=== PATIENT | female | born 1955 | race Caucasian/White ===

== ENCOUNTER 2020-09-26 15:59 | Emergency (ER) | payer MEDICARE, SELFPAY ==
[2020-09-26 16:13] VITALS: BP 148/98; PULSE 102; RESP 18; TEMP 35.9; O2SAT 99
[2020-09-26 16:54] LABS: Add Urine Microscopic? YES; Appearance Urine Cloudy (Clear); Bacteria Urine Trace /hpf; Bilirubin Urine Negative (Negative); Blood Urine Negative (Negative); Color Urine Yellow (Yellow); Glucose Urine UA Negative (Negative); Ketones Urine Negative (Negative); Leukocyte Esterase Ur 2+ LEU/UL (Negative); Mucus Urine Rare /lpf; Nitrate Urine Negative (Negative); Protein Urine Negative (Negative); Specific Grav Ur 1.014 (1.001-1.035); Squamous Epithelial Cell Urine Occasional /hpf (Few); Urobilinogen Urine Negative mg/dL (<2.0)
--- NOTE | 2020-09-26 17:54 | ED.FEMALEGU ---
HPI - Female Genitourinary General Chief complaint: Urogenital-Female Stated complaint: Sore Throat Going to Ear Time Seen by Provider: 09/26/20 16:50 Source: patient Mode of arrival: ambulatory Limitations: no limitations History of Present Illness HPI Narrative: This is a 65-year-old female that presents the emergency department for dysuria x2 days. Reports she had noted blood on the tissue when she wiped today as well. Reports she has had a sore throat over the last couple of days. Denies fever, congestion, rhinorrhea, cough, abdominal pain, vomiting, or flank pain. 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 Surgical History Surgical History (Updated 09/26/20 @ 18:03 by Audra Millan PA-C) History of hysterectomy History of nephrectomy Family History Family History (Updated 05/23/16 @ 23:21 by DOCTOR UNKNOWN) Mother Family history of osteoarthritis Patient's mother is in good health Family history of diabetes mellitus in first degree relative Father Patient's father is in good health Sibling Patient's sister is in good health Patient's brother is in good health Social History Social History Alcohol intake: never Exam Narrative: Exam Narrative: GENERAL: Well-appearing, well-nourished, and in no acute distress. HEAD: Normocephalic, atraumatic. EYES: EOMI. ENT: Nares clear, no rhinorrhea or epistaxis. Mucous membranes moist. Oropharynx with mild, symmetric tonsillar hypertrophy and erythema, no exudate or other lesions. Bilateral TMs pearly timmons non-bulging NECK: Supple. No adenopathy or masses. CHEST: Clear to auscultation. No respiratory distress. No wheezes rales or rhonchi HEART: Regular rate and rhythm. No murmur heard. Normal peripheral pulses. ABDOMEN: Soft, nontender, nondistended, normal active bowel sounds. No CVA tenderness EXTREMITIES: Normal range of motion. No edema. SKIN: Warm, dry. NEURO: No focal deficits. Alert and oriented x3. PSYCH: Normal mood and affect FEMALE GENITAL: Vulvar region with erythema and irritation. Patient did not tolerate speculum exam Course Vital Signs Vital signs: Vital Signs Temperature 96.6 F L 09/26/20 16:13 Pulse Rate 102 H 09/26/20 16:13 Respiratory Rate 18 09/26/20 16:13 Blood Pressure 148/98 H 09/26/20 16:13 Pulse Oximetry 99 09/26/20 16:13 Temperature 96.6 F L 09/26/20 16:13 Pulse Rate 102 H 09/26/20 16:13 Respiratory Rate 18 09/26/20 16:13 Blood Pressure 148/98 H 09/26/20 16:13 Pulse Oximetry 99 09/26/20 16:13 MDM - Female Genitourinary MDM Narrative Medical decision making narrative: Patient presents to the emergency department for urinary discomfort, was also reporting sore throat. She is afebrile and nontoxic-appearing. Strep screen is negative. Denies any abdominal pain or flank pain. UA with evidence of possible infection. This will go for culture. Patient will be started on oral antibiotics. Does report history of dermatologic issue, for which she has had rash for years. Sometimes she does get this rash in the vulvar region. She does have a steroid at home as needed for this. Was instructed to follow-up with her certified pathology assistant and dub room engineer as well. She was given warnings to return to the ER Lab Data Attestation: I reviewed the patient's lab results. Labs: Lab Results 09/26/20 Range/Units 16:41 Urine Color Yellow (Yellow) Urine Appearance Cloudy H (Clear) Urine pH 5.0 (5.0-9.0) Ur Specific [place] 1.014 (1.001-1.035) Urine Protein Negative (Negative) mg/dL Urine Glucose (UA) Neg
[2020-09-26 18:12] VITALS: BP 138/69; PULSE 85; RESP 22; TEMP 36.8; O2SAT 100
== END 2020-09-26 18:13 | disposition home or self-care (01) ==
PROVIDERS: Emergency Provider Emergency Medicine; PCP Family Medicine
DX: N30.00 Acute cystitis without hematuria (principal); J02.9 Acute pharyngitis, unspecified
CPT/HCPCS: 81001; 87081; 87086; 87880; 99283

== ENCOUNTER 2020-11-06 19:35 | Emergency (ER) | payer MEDICARE, SELFPAY ==
[2020-11-06 19:55] VITALS: BP 132/79; PULSE 106; RESP 18; TEMP 36.2; O2SAT 95
--- NOTE | 2020-11-06 21:56 | ED.EYEPROB ---
HPI - Eye Problem General Chief complaint: Eye Problems Stated complaint: eye complaint Time Seen by Provider: 11/06/20 20:58 Source: patient Mode of arrival: ambulatory Limitations: no limitations History of Present Illness HPI Narrative: This patient is a 65 year old female who presents for evaluation of left eye redness. She noticed redness to her left medial eye 2 days ago. She denies blurred vision, visual changes or sensation of foreign body. She denies any trauma. She denies being around an environment in which she was exposed to debris. She wears glasses. She denies bleeding issues. she reports no increasing floaters. 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 Surgical History Surgical History (Updated 09/26/20 @ 18:03 by Audra Millan PA-C) History of hysterectomy History of nephrectomy Family History Family History (Updated 05/23/16 @ 23:21 by DOCTOR UNKNOWN) Mother Family history of osteoarthritis Patient's mother is in good health Family history of diabetes mellitus in first degree relative Father Patient's father is in good health Sibling Patient's sister is in good health Patient's brother is in good health Social History Social History Alcohol intake: never Exam Const: General: no acute distress and alert Orientation/consciousness: patient oriented x3 HENMT: Head: normocephalic and atraumatic Face and sinus: face symmetric Eyes: Alignment and Position: alignment normal Periorbital: periorbital findings normal Conjunctivae: conjunctival abnormality left subconjunctival hemorrhage (left medial ) Sclera: scleral abnormality left hemorrhage Cornea: corneas normal and fluorescein used Pupils: Equal, round and reactive pupils present EOM: EOMs intact bilaterally Course Reevaluation(s) Reevaluation #1: I performed slit lamp exam, no hyphema seen. No foreign body seen, no sign of globe rupture Date: 11/06/20 Time: 21:57 Vital Signs Vital signs: Vital Signs Temperature 97.2 F L 11/06/20 19:55 Pulse Rate 106 H 11/06/20 19:55 Respiratory Rate 18 11/06/20 19:55 Blood Pressure 132/79 11/06/20 19:55 Pulse Oximetry 95 11/06/20 19:55 Temperature 97.2 F L 11/06/20 19:55 Pulse Rate 106 H 11/06/20 19:55 Respiratory Rate 18 11/06/20 19:55 Blood Pressure 132/79 11/06/20 19:55 Pulse Oximetry 95 11/06/20 19:55 Discharge Plan Discharge Clinical Impression: Subconjunctival hemorrhage Patient Disposition: Home, Self-Care Condition: Stable Instructions: Subconjunctival Hemorrhage (ED) Additional Instructions: Please call your eye doctor within the week to arrange for a follow appointment. Prescriptions: No Action sucralfate 1 gram tablet RF: 0 pantoprazole 20 mg tablet,delayed release (DR/EC) PO RF: 0 lorazepam 0.5 mg tablet RF: 0 acetaminophen-codeine 300-60 mg tablet RF: 0 clotrimazole 1 % cream TOPICAL RF: 0 Follow-up/Referrals: Adela,Guy Trevino DO [Primary Care Provider] -
== END 2020-11-06 22:03 | disposition home or self-care (01) ==
PROVIDERS: Emergency Provider General Practice; PCP Family Medicine
DX: H11.32 Conjunctival hemorrhage, left eye (principal); Z85.44 Personal history of malignant neoplasm of other female genital organs; Z90.5 Acquired absence of kidney
CPT/HCPCS: 99282

== ENCOUNTER 2025-01-17 12:45 | Outpatient (CLI) | payer MEDICARE, SELFPAY ==
--- NOTE | ~2025-01-17 | CT_ITS ---
EXAMINATION: CT chest abdomen pelvis wo con DATE: 01/17/2025 13:18 INDICATION: Thrombocytopenia. TECHNIQUE: Computed tomography (CT) of the chest, abdomen, and pelvis was performed without intraveno us contrast. Automated exposure control and iterative reconstruction technique were employed. The dos e-length product was 1133.40 mGy-cm. COMPARISON: CT abdomen and pelvis 11/11/2016, CT 04/10/2011 FINDINGS: CHEST CT: There is mild emphysema. There is mild atelectasis bilaterally. There are mild peripheral reticular o pacities in the inferior lungs. There is a 3.1 cm nodule in left thyroid lobe. The heart size is norm al. No pericardial effusion. There is a small sliding hiatal hernia. There is moderate thoracic spond ylosis. ABDOMEN/PELVIS CT: There is a 12 mm cyst in the liver. There are changes of cholecystectomy. The spleen, pancreas, and l eft adrenal gland are normal. There are changes of right adrenalectomy and nephrectomy. Left kidney i s normal. There are no dilated loops of bowel. The appendix is not visualized. There are no pathologi marissa enlarged lymph nodes. There is no free intraperitoneal fluid. There is severe lumbar spondylosi s. IMPRESSION: 1. Mild emphysema and mild chronic lung disease. 2. Left thyroid nodule. Consider thyroid ultrasound for risk stratification. 3. Small sliding hiatal hernia. Reviewed, dictated and finalized at location A.
== END 2025-01-17 12:46 | disposition home or self-care (01) ==
PROVIDERS: PCP Family Medicine; Visit Provider Internal Medicine Medical Oncology
DX: C55 Malignant neoplasm of uterus, part unspecified (principal); C64.9 Malignant neoplasm of unspecified kidney, except renal pelvis; J43.9 Emphysema, unspecified; K44.9 Diaphragmatic hernia without obstruction or gangrene
CPT/HCPCS: 71250; 74176